=== PATIENT | male | born 1990 | race Asian ===

== ENCOUNTER → 2020-12-30 08:07 | Outpatient (CLI) | payer OTHER, SELFPAY ==
[2020-12-11 14:00] VITALS: BMI 24.5
[2020-12-30 12:47] LABS: Absolute Lymphocyte Count 1.99 X10^3/uL (0.83-4.51); Absolute Neutrophil Count 3.4 X10^3/uL (2.0-7.7); Basophil# 0.07 X10^3/uL; Basophil% 1.1 % (0-1); Eosinophil# 0.25 X10^3/uL; Eosinophils% 3.9 % (0-5); Hematocrit 48.1 % (40-54); Hemoglobin 15.4 g/dL (13.0-16.5); Lymphocyte # 1.99 X10^3/ul (0.83-4.51); Lymphocyte % 31.2 % (19-41); Mean Corpuscular Hgb 29.2 pg (27.0-32.0); Mean Corpuscular Volume 91.1 fL (80-94); Mean Platelet Vol. 11.5 fl (6.2-12.0); Monocyte# 0.71 X10^3/uL; Monocyte% 11.1 % (0-10); NRBC Flagged by Analyzer 0 % (0-5); Neutrophil # 3.35 X10^3/uL (2.7-7.7); Neutrophil % 52.5 % (47-70); Platelet Count 257 K/mm3 (150-450); RBC Distribution Width CV 12.7 % (11.6-14.6); RBC Distribution Width SD 42.1 fl (35.1-43.9); Red Blood Count 5.28 M/mm3 (4.6-6.2); White Blood Count 6.4 K/mm3 (4.4-11.0)
[2020-12-30 13:13] LABS: ALB/GLOB Ratio 1.1 RATIO (0.9-2.4); AST(SGOT) 25 U/L (15-37); Alanine Aminotransfer ALT/SGPT 51 U/L (16-61); Alkaline Phosphatase 59 U/L (45-117); Anion Gap 4 (5-15); BUN 9 mg/dL (7-18); BUN/Creat Ratio 8.8 RATIO (10-20); Calcium,Total 8.9 mg/dL (8.5-10.1); Chloride 103 mmol/L (98-107); Cholesterol 145 mg/dL (200); Creatinine, Serum 1.02 mg/dL (0.70-1.30); EST Glomerular Filtration Rate 90 mL/min (>60); Est Glom Filt Rate - Afr Amer 109 mL/min (>60); Globulin 3.6 g/dL (2.2-4.2); Glucose 90 mg/dL (74-106); High Density Lipoprotein 37 mg/dL; Potassium 3.8 mmol/L (3.5-5.1); Protein, Total 7.6 g/dL (6.4-8.2); Sodium Level 138 mmol/L (136-145); Thyroid Stim Hormone (TSH) 2.15 uIU/mL (0.358-3.74); Triglycerides 168 mg/dL; Very Low Density Lipoprotein 34 mg/dL (5-40)
== END ==
PROVIDERS: PCP Internal Medicine; Referring Provider Internal Medicine; Visit Provider Internal Medicine
DX: L50.9 Urticaria, unspecified (principal)
CPT/HCPCS: 36415; 80053; 80061; 82306; 84443; 85025

== ENCOUNTER 2021-01-20 18:51 | Emergency (ER) | payer OTHER, SELFPAY ==
[2021-01-13 10:05] VITALS: BMI 24.5
[2021-01-20 18:52] VITALS: BP 134/95; PULSE 85; RESP 16; TEMP 36; O2SAT 99; BMI 24.5
--- NOTE | 2021-01-20 19:09 | EDS_ITS ---
HPI HPI - GI History of Present Illness Chief Complaint: Abd Pain Informant: patient Abdominal Pain/Flank Pain Onset: Today and Hours Timing: Continuous Quality: Aching Location: Epigastric Current Severity: Mild Maximum Severity: Mild Worsened by: Nothing Relieved by: Nothing Nausea/Vomiting/Emesis GI Symptom: Negative for Nausea and Vomiting Diarrhea/Melena/Hematochezia GI Symptom: Negative for Diarrhea, Melena and Hematochezia Associated Symptoms Associated Symptoms: Negative for Dysuria, Frequency, Hematuria and Urgency Narrative Narrative: 30-year-old male seen today after lunch around 1:00 he still having epigastric abdominal pain. No prior history. He denies any recent nausea, vomiting, diarrhea, fever or chills. No dysuria. No hematemesis. No weight change. No melena. No prior abdominal surgeries. Nothing particular changes the pain. He states it has worsened and been constant since 1:00. Prior similar symptoms: No Recent Illness/Hospitalization: No PFSH PFSH Home Medications NK 12/11/20 [History Last Taken Unknown] pantoprazole [Protonix] 40 mg PO DAILY #20 tab 01/20/21 [Rx Last Taken Unknown] Allergy/AdvReac Type Severity Reaction Status Date / Time No Known Allergies Allergy Unverified 01/20/21 18:51 Family History Mother High cholesterol Grandmother High cholesterol Social History Smoking Status: Never smoker alcohol intake: current alcohol intake frequency: holidays/special occasions only substance use type: does not use ROS ROS ED ROS Narrative Patient denies any recent illness other than some mild diarrhea last week that is since resolved. Review of Systems ROS Unobtainable: Denies due to encephalopathy Constitutional Constitutional ED: Denies chills, fever(s), sweats or weight loss ENT ENT ED: Denies sore throat Cardiovascular Cardiovascular: Denies chest pain Respiratory/Chest Respiratory/Chest: Denies cough or dyspnea Gastrointestinal Gastrointestinal: Reports abdominal pain and diarrhea; Denies nausea or vomiting Genitourinary Genitourinary ED: Denies dysuria or hematuria Musculoskeletal Musculoskeletal: Denies myalgias Integumentary Denies rash Neurologic Neurologic: Denies headache(s) Psychiatric Psychiatric: Denies depression Endocrine Endocrinology: Denies polyuria Hematologic/Lymphatic Hematologic/Lymphatic: Denies easy bruising Allergic/Immunologic Allergic/Immunologic ED: Denies urticaria EXAM Physical Exam Narrative Exam Narrative: Young healthy male no acute distress. Vital signs stable afebrile. HEENT exam normal. Moist remembers. Neck nontender. No lymphadenopathy. Lungs clear to auscultation bilaterally. Heart regular rhythm no murmur. Abdomen soft. Epigastric tenderness. No rebound, guarding or rigidity. No distention. No signs of obstruction. Right upper quadrant nontender. No Almanza sign. Right lower quadrant nontender no McBurney's point tenderness. No signs of trauma. No masses. Patient moving all 4 extremities. No edema. Back nontender. Neurologically is awake and alert. Const Vital Signs: 01/20/21 18:52 Temperature 96.8 F L Temperature Source Temporal Pulse Rate 85 Respiratory Rate 16 Blood Pressure 134/95 H Blood Pressure Mean 108 Pulse Ox 99 Oxygen Delivery Method Room Air HEENT Reports moist mucous membranes normocephalic and atraumatic Eyes PERRL and EOMs intact bilaterally Neck no lymphadenopathy, supple and no JVD Resp normal respiratory effort and clear to auscultation bilaterally Cardio regular rate, regular rhythm and no murmurs GI non-distended Inspection: Negative for abdominal distention Auscultation: normoactive bowel sounds; Negative for hyperactive bowel sounds or hypoactive bowel sounds Palpation: soft and tender; Negative for hepatomegaly, splenomegaly, hernia, mass, pulsatile mass or rebound tenderness present Back/Spine no CVA tenderness Extremity full ROM General Extremety ED: Negative for edema or tenderness General Extremity: Negative for edema Neuro moves all extremities Sensorium / Orientation: alert, oriented to person, oriented to place and oriented to time Psych mental status grossly normal Skin Rashes: no rashes MDM MDM MDM Narrative Medical decision making narrative: Young male with epigastric abdominal pain being treated with GI cocktail. It is reproducibly tender. Obtaining a CAT scan with IV contrast of his abdomen pelvis. Labs are being obtained. Lab Data Attestation: I reviewed the patient's lab results. Lab results narrative: CBC unremarkable white count 1.9 normal hemoglobin no bands chemistries unremarkable liver enzymes unremarkable and lipase normal. CT abdomen pelvis reviewed by me read by the radiologist showed no acute abnormality. Repeat exam at 10:55 PM patient is doing well. His abdomen is benign and nontender. He feels better after the GI cocktail. He had I went over all his test results. His history and exam are consistent with gastritis. Labs: Laboratory Results - last 24 hr 01/20/21 01/20/21 19:35 19:35 WBC 11.9 H RBC 5.30 Hgb 15.9 Hct 47.9 MCV 90.4 MCH 30.0 MCHC 33.2 RDW Std Deviation 40.4 RDW Coeff of Bryn 12.4 Plt Count 273 MPV 11.3 Immature Gran % (Auto) 0.300 Neut % (Auto) 58.7 Lymph % (Auto) 12.9 L [place] % (Auto) 6.3 Eos % (Auto) 20.5 H Baso % (Auto) 1.3 H Absolute Neuts (auto) 7.0 Absolute Lymphs (auto) 1.53 Nucleated RBC % 0 Differential Comment SCANNED Diff Path Review January foll Sodium 138 Potassium 4.4 Chloride 106 Carbon Dioxide 28.0 Anion Gap 4 L BUN 14 Creatinine 1.03 Estim Creat Clear Calc 99.61 Est GFR (MDRD) Af Amer 107 Est GFR (MDRD) Non-Af 89 BUN/Creatinine Ratio 13.6 Glucose 99 Calcium 9.0 Total Bilirubin 0.50 AST 65 H ALT 61 Alkaline Phosphatase 70 Total Protein 8.0 Albumin 3.9 Globulin 4.1 Albumin/Globulin Ratio 1.0 Lipase 80 Radiography Diagnostic Testing: Radiology Impression Abdomen/Pelvis CT 01/20/21 20:22 IMPRESSION: Normal enhanced CT of the abdomen and pelvis. Electronically Signed: Masood Nelson DO at 21:07 EDT Tel [phone], Service support , Discharge Plan Triage Chief Complaint: Abd Pain ED Provider: Sky Nevarez Dx/Rx/DC Orders Clinical Impression: Acute gastritis Instructions: ED Gastritis (Adult) Prescriptions: New pantoprazole [Protonix] 40 mg tablet,delayed release (DR/EC) 40 mg PO DAILY Qty: 20 RF: 0 No Action NK RF: 0 Primary Care Provider: Barb Cantu Referrals: Barb Cantu MD [Primary Care Provider] - 1 Week if not improving Activity Restrictions/Additional Instructions: Return if increasing pain, fever, vomiting blood or black stool. Most likely this is gastritis which is irritation of her stomach. Use the medication as prescribed. Disposition Disposition: Home, self care
[2021-01-20 19:41] LABS: Absolute Lymphocyte Count 1.53 X10^3/uL (0.83-4.51); Basophil# 0.16 X10^3/uL; Basophil% 1.3 % (0-1); Eosinophils% 20.5 % (0-5); Hematocrit 47.9 % (40-54); Hemoglobin 15.9 g/dL (13.0-16.5); Lymphocyte # 1.53 X10^3/ul (0.83-4.51); Lymphocyte % 12.9 % (19-41); Mean Corp Hgb Conc 33.2 g/dL (32-36); Mean Corpuscular Volume 90.4 fL (80-94); Mean Platelet Vol. 11.3 fl (6.2-12.0); Monocyte# 0.75 X10^3/uL; Monocyte% 6.3 % (0-10); NRBC Flagged by Analyzer 0 % (0-5); Neutrophil # 6.95 X10^3/uL (2.7-7.7); Neutrophil % 58.7 % (47-70); POSITIVE DIFFERENTIAL YES; Platelet Count 273 K/mm3 (150-450); RBC Distribution Width CV 12.4 % (11.6-14.6); RBC Distribution Width SD 40.4 fl (35.1-43.9); White Blood Count 11.9 K/mm3 (4.4-11.0)
[2021-01-20] MEDS: Mag Hydrox/Al Hydrox/Simeth 30 ML UDC PO (19:43)
[2021-01-20 20:14] LABS: AST(SGOT) 65 U/L (15-37); Alanine Aminotransfer ALT/SGPT 61 U/L (16-61); Albumin, Serum 3.9 g/dL (3.2-5.0); Alkaline Phosphatase 70 U/L (45-117); Anion Gap 4 (5-15); BUN 14 mg/dL (7-18); BUN/Creat Ratio 13.6 RATIO (10-20); Chloride 106 mmol/L (98-107); Creatinine, Serum 1.03 mg/dL (0.70-1.30); Differential Indicated SCAN CRITERIA MET; EST Glomerular Filtration Rate 89 mL/min (>60); Eosinophil# 2.43 X10^3/uL; Est Glom Filt Rate - Afr Amer 107 mL/min (>60); Estimated Creatinine Clearance 99.61 ml/min; Globulin 4.1 g/dL (2.2-4.2); Glucose 99 mg/dL (74-106); Lipase 80 U/L (73-393); Potassium 4.4 mmol/L (3.5-5.1); Sodium Level 138 mmol/L (136-145)
[2021-01-20 20:15] LABS: Differential Comment SCANNED
--- NOTE | 2021-01-20 20:22 | CT_ITS ---
STUDY: CT ABDOMEN AND PELVIS WITH CONTRAST REASON FOR EXAM: Male, 30 years old. Epigastric abdominal pain RADIATION DOSAGE (If Supplied By Facility): CTDIvol = ( 10.55 ) mGy, DLP = ( 583.15 ) mGycm TECHNIQUE: Transaxial images were obtained from the dome of the diaphragm to the symphysis pubis without oral contrast. IV 100mL Isovue-300 was administered. Sagittal and coronal images were reconstructed. Individualized dose optimization techniques were used for this CT. COMPARISON: None. FINDINGS: The visualized lung bases are unremarkable. The visualized portions of the heart are within normal limits. Normal liver. Normal gallbladder and extrahepatic biliary system. Normal spleen. Normal pancreas. Normal bilateral adrenal glands. Normal right kidney. Normal left kidney. Normal visualized stomach. Normal small intestine. Normal colon. The appendix is visualized and appears normal. Normal abdominal aorta. Normal inferior vena cava. Normal retroperitoneum. Normal urinary bladder. Normal abdominal wall. Normal osseous structures. CT/Abdomen/Pelvis W IV Cont ONLY IMPRESSION: Normal enhanced CT of the abdomen and pelvis. Electronically Signed: Masood Nelson DO at 21:07 EDT Tel [phone], Service support ,
[2021-01-20 23:10] VITALS: BP 130/80; PULSE 87; RESP 18; O2SAT 100
[2021-01-21 14:29] LABS: Pathologist Review Reviewed
== END 2021-01-20 23:11 | disposition home or self-care (01) ==
PROVIDERS: Emergency Provider Emergency Medicine; PCP Internal Medicine
DX: K29.00 Acute gastritis without bleeding (principal)
CPT/HCPCS: 74177; 80053; 83690; 85025; 99284; Q9967; A4216

== ENCOUNTER 2021-01-22 08:00 | Outpatient (RCR) | payer OTHER, SELFPAY | END 2021-02-26 23:59 | LOC: IMMUN 08:00 | PROVIDERS: PCP Internal Medicine; Referring Provider Family Medicine; Visit Provider Family Medicine | DX: Z23 Encounter for immunization (principal) | CPT/HCPCS: 0001A; 0002A; 91300 ==